=== PATIENT | female | born 1940 | race Caucasian/White ===

== ENCOUNTER 2016-03-27 13:24 | Emergency (ER) | payer MEDICARE, BC ==
[2016-03-27 13:51] LABS: Hematocrit 35.7 % (37.0-47.0); Hemoglobin 11.2 gm/dL (12.5-16.0); Mean Cell Volume 98.6 fl (78-100); Mean Corpuscular Hemoglobin 30.9 pg (27-31); Mean Corpuscular Hgb Conc 31.4 g/dl (32-36); Neutrophil # 2.9 K/mm3 (1.3-6.0); Neutrophil % 49.7 % (42-75.0); Platelet Count 211 K/mm3 (150-450); Red Blood Count 3.62 M/mm3 (4.2-5.4); Red Cell Distribution Width 12.9 % (11.5-14.0); White Blood Count 5.8 K/mm3 (4.0-10.5)
[2016-03-27 14:01] LABS: Urine Appearance Clear; Urine Bacteria TRACE; Urine Bilirubin Negative (NEGATIVE); Urine Blood Negative /ul (NEGATIVE); Urine Color Yellow; Urine Ketone Negative (NEGATIVE); Urine Nitrite Negative (NEGATIVE); Urine Protein Negative (NEGATIVE); Urine RBC None Seen /hpf (0-5); Urine Specific Gravity 1.015 SP.GR. (1.005-1.010); Urine Urobilinogen Normal (NORMAL); Urine WBC TRACE /hpf (0-5); Urine pH 6.5 pH (5.0-7.0)
[2016-03-27 14:05] LABS: Prothrombin Time (Patient) 10.7 Seconds (9.4-11.4)
[2016-03-27 14:07] LABS: INR 1.03 INR (0.90-1.10); Partial Thrombolplastin Time 25.8 Seconds (24-32)
[2016-03-27 14:07] LABS: Albumin * 3.4 gm/dl (3.4-5.0); Anion Gap 12.2 mmol/L (6.8-13.8); BUN/Creatinine Ratio 16.3 (9.0-21.6); Bilirubin, Total 0.3 mg/dL (0.0-1.1); Calcium * 8.8 mg/dL (7.9-10.9); Carbon Dioxide 30.4 mmol/L (24-32.6); Potassium 3.6 mmol/L (3.4-4.6); Total Protein 6.8 gm/dL (6.2-8.2)
[2016-03-27] MEDS ORDERED: LEVOFLOXACIN 500 MG TABLET PO ONE (15:21)
--- NOTE | 2016-03-27 15:21 | ERNOTE ---
GI Bleeding/Rectal Pain ER Date of Service: 03/27/16 Presenting Symptoms: dark/tarry stools Time Seen by Provider: 03/27/16 14:39 Source: patient Exam Limitations: no limitations Allergies/Adverse Reactions: Allergies propoxyphene HCl [From Darvon] Adverse Reaction (Mild, Verified 03/27/16 13:33) n/v Home Medications: HOME MEDICATIONS Levofloxacin [Levaquin] 500 mg PO DAILY #7 tablet 03/27/16 [Last Taken Unknown] Narrative: Patient black stools since yesterday had 2 episodes only and today, small quantity. She is also having some left lower quadrant abdominal pain. Denies any vomiting or diarrhea denies any fever. Patient's had a colonoscopy and upper endoscopy 2 years ago which she is uncertain of the results but were conveyed to her normal, she thinks. Patient has been having some left lower abdominal pain was also located in the suprapubic area she is wondering she's having a urinary tract infection. As any weakness dizziness or any new syncopal episodes. No headache or chest pain. Date (Duration): 03/26/16 Timing: intermittent, resolved prior to arrival Quality/Severity: Present: mild Abdominal Pain: Present: LLQ Associated Symptoms: Reports: black stools. Denies: fainting, dizziness, light headedness, diarrhea Review of Systems - Review of Systems Constitutional: Absent: fever, chills, weight loss Respiratory: Absent: shortness of breath, cough Cardiology: Absent: chest pain, palpitations, syncope Gastrointestinal/Abdominal: Present: abdominal pain - lower quadrant abdominal pain mild in nature intermittent. Absent: nausea, vomiting, diarrhea, constipation All Other Systems: All systems neg except as marked - Patient's Past Medical History Patient History - Medical: No pertinent hx, Other Patient History - Cardiac/Respiratory: No pertinent hx Patient History - Cancer: No Hx of Cancer Patient History - Surgical Procedures: Appendectomy Patient History - Other: None - Social History Living Situations: home Alcohol Use: none Drug Use: none Physical Exam - Physical Exam General Appearance: Present: wd/wn, alert, no apparent distress Eye Exam: PERRL: bilateral, EOMI: bilateral Ears, Nose, Throat: Present: normal ENT inspection, hearing grossly normal, normal pharynx Neck: Present: normal inspection, nontender Respiratory: Present: no respiratory distress, normal breath sounds, no accessory muscle use, chest nontender, lungs clear Cardiovascular/Chest: Present: regular rate, rhythm, no murmur, normal peripheral pulses Gastrointestinal/Abdominal: Present: normal bowel sounds, nondistended, soft, no organomegaly, tenderness - very minimal tenderness in the left lower abdomen more towards the suprapubic and pelvic area. ED Progress - Results and Orders Patient's Lab Results:: I have reviewed the patient's lab results. - Vital Signs Patient's Vital Signs:: I have reviewed the patient's vital signs. Vital Signs: Vital Signs 03/27/16 13:27 Temperature 36.3 C L Pulse Rate 82 Respiratory 12 Rate Blood Pressure 143/69 O2 Sat by Pulse 100 Oximetry - Progress/Reassessment Chief Complaint: GI Bleed Progress:: Improved Progress Note-Subjective: 03/27/16 15:20 Is doing quite well reviewed the lab work with the patient hemoglobin is stable as well as her BUN/creatinine and creatinine. She is feeling much better defers on any CAT scan or imaging tests at this point. She is not having further episodes today to go ahead and discharge her home treat her for a UTI. Make an appointment for her to see our general surgeon Dr. Walsh, her outpatient scheduling of an upper and lower endoscopy. Inpatient defers on any further imaging tests and prefers to go home Back to the ER with any change or worsening symptoms. Warning signs and symptoms have been reviewed with the patient returned back to the ER with good understanding 03/27/16 15:43 Once again patient doing quite well for his on any imaging test desires to go home. She understands her symptoms worsens or any changes symptoms she is to return back to the ER. Once again patient does not want to be admitted would rather try this as an outpatient. Departure Clinical Impression: GI bleed Qualifiers: GI bleed type/associated pathology: diverticulosis Qualified Code(s): K57.91 - Diverticulosis of intestine, part unspecified, without perforation or abscess with bleeding UTI (urinary tract infection) Qualifiers: Urinary tract infection type: acute cystitis Hematuria presence: without hematuria Qualified Code(s): N30.00 - Acute cystitis without hematuria - Departure Disposition: Home Follow Up Needed Condition: Good Instructions: Urinary Tract Infection, Adult, [id number], Gastrointestinal Bleeding, [id number], Diverticulosis Additional Instructions: Follow up with Dr. Walsh for the outpatient endoscopy, on 03/30/16 at 8:00 am Referrals: Dee Chavez MD [Primary Care Provider] - Carter Walsh MD [Staff Physician] - Prescriptions: Levofloxacin [Levaquin] 500 mg PO DAILY #7 tablet
[2016-03-27] MEDS ORDERED: LEVOFLOXACIN 500 MG TABLET ONE (15:27)
[2016-03-27 15:44] VITALS: BP 123/48
== END 2016-03-27 15:59 | disposition home or self-care (01) ==
LOC: ER 13:24
DX: K57.91 Diverticulosis of intestine, part unspecified, without perforation or abscess with bleeding (principal); N30.00 Acute cystitis without hematuria

== ENCOUNTER 2016-04-05 05:48 | Day surgery (SDC) | payer MEDICARE, BC ==
--- OUTSIDE RECORDS SUMMARY | 2016-04-05 05:52 | XMS REPORT | Continuity of Care Document ---
:1940 Author Organization [facility] ([facility]) [place] [address] Phone [phone] Care Team Providers Name Role Phone Provider, No-Primary Care Primary Care Provider Unavailable Source Comments This disclosure is being made pursuant to the Care Everywhere program, applicable federal and state laws, and may not contain all informaitonavailable regarding this patient.[facility] ([facility]) Active Allergies and Adverse Reactions Not on File Current Medications Not on file Active Problems Not on file Social History Tobacco Use Types Packs/Day Years Used Date Never Assessed Plan of Care Date Type Specialty Providers Description 06/07/2016 Appointment Neurology Tom Jack, PHD Chief Comp: Patient [address] [place] [address] [phone] (Fax) Health Maintenance Due Date Last Done Comments Hepatitis B Vaccine (1 of 3 - Primary Series) 1940 Tdap Vaccine 1953 Lipid Disorder Screening 1960 Td Vaccine 1960 Mammogram 1982 Colonoscopy 08/22/1992 Zoster Vaccine 2002 Osteoporosis Screening (DXA Bone Density) 08/24/2007 Pneumococcal Vaccine (1 of 2 - PCV13) 08/24/2007 Influenza Vaccine: Seasonal (#1) 09/27/2015 Results from Last 3 Months Not on file
[2016-04-05] MEDS ORDERED: RINGERS SOLUTION,LACTATED 1,000 ML IV PRN (06:00)
[2016-04-05] MEDS ORDERED: PANTOPRAZOLE SODIUM 40 MG/100 ML PIGGYBACK IV ONE (07:44)
[2016-04-05] MEDS ORDERED: PANTOPRAZOLE SODIUM 40 MG in NORMAL SALINE 100 ML IV ONE (07:45)
[2016-04-05 08:36] VITALS: BP 124/53
--- NOTE | 2016-04-05 19:22 | OR ---
Operative Report - Dictated Report Narrative: Operative Report Date of operation 04/05/2016 Preoperative diagnosis: GI bleeding and anemia Postoperative diagnosis: Gastropathy with healing prepyloric erosion ( pathology and CLOtest pending) Operation: EGD with biopsies Surgeon: Dr Walsh Anesthesia: SAUD RAMIREZ CRNA Indications for procedure: The patient is a 75-year-old female referred by the emergency room following her recent visit for complaint of black stools. Her history is significant for a chronic anemia with severe exacerbation in 2011 felt to be due to NSAIDs and treated by transfusion. She had colonoscopy in 2012 with removal of a single tubular adenoma. She has never had an EGD. Findings: Gastropathy with a healing prepyloric erosion (pathology and CLOtest pending) Narrative of procedure: The patient was identified preoperatively, and prior to the administration of anesthetic a multidisciplinary timeout was observed With the patient in the recumbent position, a bite-block was placed, intravenous sedation was administered, and the patient's eyes covered with a towel. The flexible fiberoptic gastroscope was advanced into the posterior pharynx which appeared normal. The supraglottic larynx appeared normal. The cords appeared normal, moved well, and opposed in the midline. The scope was advanced under direct vision into the proximal esophagus which appeared normal. The esophagus appeared freely distensible with normal mucosa. The esophageal mucosa appeared normal down to the gastroesophageal junction which was sharp and noninflamed. The GE junction appeared normally distensible. The scope was advanced into the stomach which was insufflated with air. There was traylor gastritic erythema with at least one prepyloric healing erosion. A retroflexed view of the gastric fundus revealed no additional lesions. The pylorus appeared patent. The scope was advanced into the duodenal bulb which appeared normal. The scope was advanced further to the horizontal portion of the duodenum which appeared normal, specifically the villous architecture appeared well preserved and clear bile was present. The scope was slowly withdrawn through the duodenal bulb with confirmation that no active ulcer was present. The scope was withdrawn into the stomach and claim representative biopsies of gastric mucosa obtained for CLOtest and pathology. The biopsy sites were seen to be hemostatic. The insufflated air was removed, the scope withdrawn from the patient, and the procedure terminated. The patient tolerated the anesthetic and procedure well without complication and was transferred back to the ambulatory surgery area awake and in stable condition. The patient remained stable throughout a period of postoperative observation, was able to tolerate by mouth intake, and was up without assistance. I shared the operative findings with her and her , and she was given copies of the photographs which appear in the medical record. She was discharged home with instructions not to engage in hazardous activity today, but may return to normal activity tomorrow and advance diet as tolerated. She is to continue medications as listed in the history and physical exam. I made arrangements to contact the patient with biopsy reports and will make further recommendation based upon that result. Reviewed and electronically signed
== END 2016-04-05 05:49 | disposition home or self-care (01) ==
LOC: AMB 05:48
PROVIDERS: ATTEND Surgery
PROC: 0DB68ZX Excision of Stomach, Via Natural or Artificial Opening Endoscopic, Diagnostic (ICD-10-PCS; principal; 2016-04-05 07:00)
DX: K29.70 Gastritis, unspecified, without bleeding (principal); D50.0 Iron deficiency anemia secondary to blood loss (chronic); K57.30 Diverticulosis of large intestine without perforation or abscess without bleeding; Z68.25 Body mass index [BMI] 25.0-25.9, adult